=== PATIENT | female | born 1980 | race Caucasian/White ===

== ENCOUNTER 2016-07-15 09:15 | Emergency (ER) | payer OTHER ==
[~2016-07-15 09:15] MED LIST: BACTRIM DS TABL1 TA1 PO; BIAXIN PO; CIPRO PO; CLEOCIN HCL300 M1 PO; FLEXERIL10 M1 PO; FLEXERIL10 MG PO; HYDROCODON-ACE1 EAC5 PO; HYDROCODON-ACE1 EAC7 PO; HYDROCODON-ACET15 M1; IBUPROFEN PO; IBUPROFEN800 MG PO; KEFLEX500 MG PO; LORCET 10-6501 EACH PO; LORTAB ELIXIR15 ML DOB; MUCINEX D ER T1 EAC1 PO; NAPROSYN500 MG PO; ORUDIS75 M1 PO; OXYCODONE HCL30 MG; PEN-VEE K PO; PHENERGAN25 MG PO; PREDNISONE PO; TRAMADOL HCL50 M1 PO; TYLENOL #3 PO; WALGREEN'S PHARMACY; XYLOCAINE20 ML 2% V PO; ZOLOFT PO; ZOLOFT100 MG PO
[2016-07-15 09:49] LABS: INFLUENZA A NEG (NEG); INFLUENZA B NEG (NEG)
== END 2016-07-15 10:00 | disposition home or self-care (01) ==
LOC: CFTX 09:15
PROVIDERS: Physician Assistant
DX: J06.9 Acute upper respiratory infection, unspecified (principal); Z90.49 Acquired absence of other specified parts of digestive tract; Z98.890 Other specified postprocedural states
CPT/HCPCS: 87651; 87804; 96372; 99283; J1885

== ENCOUNTER 2016-10-14 23:00 | Emergency (ER) | payer OTHER ==
[2016-10-14] MEDS ORDERED: PERCOCET10 PO (23:31)
[2016-10-15 00:35] LABS: URINE SOURCE CLEAN CATCH
[2016-10-15 00:38] LABS: URINE APPEARANCE CLEAR; URINE BILIRUBIN NEG (NEG); URINE BLOOD TRACE-INTACT (NEG); URINE COLOR YELLOW; URINE GLUCOSE NEG (NORM); URINE KETONE TRACE (NEG); URINE LEUKOCYTE ESTERASE NEG (NEG); URINE NITRATE NEG (NEG); URINE PH 5.5 (5-8); URINE PROTEIN NEG (NEG); URINE SPECIFIC GRAVITY >=1.030 (1.003-1.035); URINE UROBILINOGEN 0.2 MG/DL (NORM)
[2016-10-15 00:39] LABS: MICRO INDICATED? YES
[2016-10-15 00:40] LABS: CULTURE INDICATED? NO; URINE BACTERIA NEG (NEG); URINE MUCUS PRESENT; URINE SQUAMOUS EPITHELIAL CELL MODERATE /[HPF]; URINE TRANSITIONAL EPI CELLS FEW /[HPF]; URINE WBC 0-2 /[HPF] (0-5)
[2016-10-16 23:37] LABS: CHLAMYDIA TRACH Not Detected (Not Detected); N GONOR Not Detected (Not Detected)
== END 2016-10-15 01:44 | disposition home or self-care (01) ==
LOC: SED 23:00
PROVIDERS: Physician Assistant Medical
DX: R10.2 Pelvic and perineal pain (principal); G89.29 Other chronic pain; F43.10 Post-traumatic stress disorder, unspecified; F41.9 Anxiety disorder, unspecified; Z90.49 Acquired absence of other specified parts of digestive tract; Z79.899 Other long term (current) drug therapy
CPT/HCPCS: 81003; 84703; 87210; 87491; 87591; 87808; 87905; 99284